=== PATIENT | male | born 1945 | race Caucasian/White ===

== ENCOUNTER 2018-08-18 13:10 | Day surgery (SDC) | payer MEDICARE, OTHER, SELFPAY ==
[2018-08-18 13:32] VITALS: BP 148/68; PULSE 71; RESP 18; TEMP 36.1; O2SAT 100; BMI 39.2
[2018-08-18] MEDS: Bupivacaine Mpf 0.5% 30 ML VIAL (14:38)
[2018-08-18] MEDS: Cefazolin 2 GM in 0.9% Normal Saline 100 ML IV (15:50)
[2018-08-18] MEDS: Mupirocin Ointment 22gm Tube 1 APPLIC (16:37)
--- NOTE | 2018-08-18 16:45 | DCINST_ITS ---
Discharge Diet: No Restrictions - keep dressing intact until seen in postop clinic in 2 weeks, call with concerns Discharge Activity: May Not Drive May shower in (days): 1 Ice area for (Minutes): 20 - Every hour while awake. Weight Bearing Status: Weight bearing as tolerated Keep extremity elevated above heart level: Operative Extremity Call your doctor if your incision/area has: Continuous Slow Oozing, Sudden Increased Bleeding, Increased Pain/ Swelling, Increased Redness, Foul Smelling Discharge Call your doctor if you observe: Fever of 101 or Higher, Coldness, Increased Pain, Numbness or Tingling, Change in Color, Calf discomfort Allergies/Adverse Reactions: Allergies No Known Allergies Allergy (Unverified 08/11/18 13:49) Medications to take at Discharge Metoprolol Succinate [Toprol Xl] 50 mg PO DAILY 08/11/18 Simvastatin 40 mg PO DAILY 08/11/18 Acetaminophen/Codeine #3 [Tylenol #3 Tablet] 1 - 2 tablet PO Q6H PRN PRN #30 tablet 08/18/18 The following prescriptions were given: Acetaminophen/Codeine #3 [Tylenol #3 Tablet] 1 - 2 tablet PO Q6H PRN PRN #30 tablet PRN Reason: Pain Primary Care Physician: Edward Bullard MD [Primary Care Provider] - Test Results: Test results from this visit will be discussed in further detail at your follow- up appointment, if applicable. Please Follow Up With: Judith Fish, - [phone]
--- NOTE | 2018-08-18 16:45 | PCM.OPRPT ---
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 It is over his right middle finger DIP on the dorsal aspect. Patient states he keeps filling up with fluid and is getting annoying to him so he would like it removed. It is affecting his ADLs. Wrist benefits alternatives surgery discussed with patient. Risks include but not limited to blood loss, blood clot, infection, neurovascular, failure procedure, loss of life and loss of limb. Patient is aware like proceed with right DIP dorsal excision of myxoid skin and DIP debridement. Next Operative note Patient seen and examined preoperative holding area. Right middle finger was marked. Patient brought to the operating room placed supine on the operating table. Sign, anesthesia, antibiotics were administered. Patient received a Vicky block. The right arm was prepped and draped usual sterile fashion with a tourniquet around his arm from the [place] block. We then marked out our incision the cyst was just ulnar and over the DIP joint and there is some skin excoriation. We did ginna out our incision to ellipse excised the skin as well. Timeout was performed. He is a 50 blade to cut through the skin dissected the skin off the top of the cyst we then able to look inside the cyst with some surrounding granulation tissue and sent to pathology for further evaluation. We then used a 15 blade to cut through the skin and dissected down tenotomy syllable of the subcuticular layer we then further debrided this back in order to visualize the DIP joint ulnar there is a little bit of a small osteophyte was gently debrided with accommodation of a rondure and a rasp. We then irrigated the entire area with copious amounts sterile saline saline we did have to deal with advancement of the tissue in order to close down the skin tissue after ellipticized and the skin on top of the cyst. We had good closure and good seal. Sterile dressings were applied tourniquet was inflated for total working time of 20 minutes. Patient tolerated procedure well went and was transferred to recovery room in stable condition. Postoperative note Keep right middle finger clean and dry next Follow-up in 2 weeks Discussed with family at [facility] disclaimer This note was generated with [employer] dictation software. It may contain incorrect words, spelling, and punctuation that were not noted in checking the note before signing.
--- NOTE | 2018-08-18 16:48 | OP.PCM_ITS ---
Report of Operation Date of Procedure: 08/18/18 Pre-Operative Diagnosis: right middle finger dip oa and myxoid cyst Post-Operative Diagnosis: same Surgery/Procedure Performed:: right middle finger dip cyst excision/skin excision, dip debridement Type of Anesthesia:: Vicky Velasco Anesthesiologist: Adria Dale Specimen's removed: cyst with granulation tissue Estimated Blood Loss (mL): minimal Fluids Replaced: 900cc lr Description of Procedure: Preoperative note Patient is a 73-year-old male who has had a cyst for quite some time is picked out it and keeps recurring. It is over his right middle finger DIP on the dorsal aspect. Patient states he keeps filling up with fluid and is getting annoying to him so he would like it removed. It is affecting his ADLs. Wrist benefits alternatives surgery discussed with patient. Risks include but not limited to blood loss, blood clot, infection, neurovascular, failure procedure, loss of life and loss of limb. Patient is aware like proceed with right DIP dorsal excision of myxoid skin and DIP debridement. Next Operative note Patient seen and examined preoperative holding area. Right middle finger was marked. Patient brought to the operating room placed supine on the operating table. Sign, anesthesia, antibiotics were administered. Patient received a B ier block. The right arm was prepped and draped usual sterile fashion with a tourniquet around his arm from the Vicky block. We then marked out our incision the cyst was just ulnar and over the DIP joint and there is some skin excoriation. We did ginna out our incision to ellipse excised the skin as well. Timeout was performed. He is a 50 blade to cut through the skin dissected the skin off the top of the cyst we then able to look inside the cyst with some surrounding granulation tissue and sent to pathology for further evaluation. We then used a 15 blade to cut through the skin and dissected down tenotomy syllable of the subcuticular layer we then further debrided this back in order to visualize the DIP joint ulnar there is a little bit of a small osteophyte was gently debrided with accommodation of a rondure and a rasp. We then irrigated the entire area with copious amounts sterile saline saline we did have to deal with advancement of the tissue in order to close down the skin tissue after ellipticized and the skin on top of the cyst. We had good closure and good seal. Sterile dressings were applied tourniquet was inflated for total working time of 20 minutes. Patient tolerated procedure well went and was transferred to recovery room in stable condition. Postoperative note Keep right middle finger clean and dry next Follow-up in 2 weeks Discussed with family at [facility] disclaimer This note was generated with [employer] software. It may contain incorrect words, spelling, and punctuation that were not noted in checking the note before signing.
[2018-08-18 16:51] VITALS: BP 148/68; BP 185/96; PULSE 70; RESP 20; TEMP 36.5; O2SAT 95
[2018-08-18 16:55] VITALS: BP 146/100; BP 148/68; PULSE 72; RESP 20; O2SAT 96
[2018-08-18 17:00] VITALS: BP 148/68; BP 157/97; PULSE 69; RESP 20; O2SAT 94
[2018-08-18 17:08] VITALS: BP 148/68; BP 165/99; PULSE 66; RESP 20; TEMP 36.2; O2SAT 95
[2018-08-18 17:28] VITALS: BP 148/68
--- NOTE | 2018-08-19 | CYST_PTH ---
PATIENT: AMISH NGUYEN [place] [facility] [place][id number] AGE/SX: 73/M ROOM: RE08/18/[address]: Dr. Judith Fish DO : 1945 BED: DIS: 08/18/2018 SPEC #: [id number] RECD: 08/19/18 10:52 STATUS: SHAYY ANA #: [id number] CELY: 08/19/18 00:[address]: Judith Fish DEPT: SURGICAL PATHOLOGY RECD BY: Arnold Marr ENTERED: 08/19/18 10:53 SP TYPE: Cyst OTHR DR: Dr. Edward Bullard MD Tissues: Finger, NOS Procedures: Surgery Specimen Level IV HEADER OPERATION: Excision dorsal myxoid cyst, DIP joint debridement right middle finger PRE-OP DIAGNOSIS: Cyst right middle finger TISSUE SUBMITTED: Cyst right middle finger MICROSCOPIC DIAGNOSIS Cyst of right middle finger, biopsy: Consistent with benign mucous cyst. AM:sangeeta 08/20/18 COMMENT Case has been reviewed in consultation with Dr. Dey who concurs with the above diagnosis. IDC:SJ MICROSCOPIC DESCRIPTION Slides are reviewed. GROSS DESCRIPTION Received in fixative is one container labeled with the patient's name and designated cyst middle finger. The specimen consists of an irregular fragment of light diaz soft tissue measuring 0.6 x 0.5 x 0.2 cm. The specimen is inked, bisected and totally submitted in one cassette. / AM:sangeeta 08/19/18 TC:5 CPT: 18103
--- OUTSIDE RECORDS SUMMARY | 2018-10-13 22:34 | XMS RPT_ITS ---
:1945 Author Organization OHIP Care Team Providers Name Role Phone Judith Fish Attending Unavailable Juan Miguel, Edward Referring Unavailable Judith Fish Attending Unavailable Judith Fish Attending Unavailable Roberto Carlos Deepak Referring Unavailable Judith Fish Attending Unavailable Roberto Carlos, Deepak Referring Unavailable Roberto Carlos, Deepak Primary Care Unavailable Judith Fish Attending Unavailable Bullard, Edward Referring Unavailable Judith Fish Attending Unavailable Judith Fish Referring Unavailable Bullard, Edward Primary Care Unavailable Bullard, Edward Attending Unavailable Bullard, Edward Primary Care Unavailable Bullard, Edward Attending Unavailable Bullard, Edward Primary Care Unavailable PROBLEMS PROBLEMS DATE TYPE CONDITION / CODE ATTENDING STATUS SOURCE 08/25/2018 Unknown M13.0 - Edward Bullard Active [place] [facility], Community unspecified / Hospital M13.0(ICD-10) Repository 08/25/2018 Unknown I10 - Essential Edward Bullard Active [place] (primary) [facility] hypertension / Hospital I10(ICD-10) Repository 08/25/2018 Unknown E78.00 - Pure Edward Bullard Active [place] hypercholesterolem [facility] ia, unspecified / Hospital E78.00(ICD-10) Repository 08/25/2018 Unknown Z12.5 - Encounter Edward Bullard Active [place] for screening for [facility] malignant neoplasm [facility] / Repository Z12.5(ICD-10) 09/06/2018 Unknown M25.841 - Other [place] Active [place] [facility] hand / Repository M25.841(ICD-10) PROCEDURES PROCEDURES No Procedure Records FoundRESULTS RESULTS ORTHOPEDIC VISIT Observed: 09/02/2018 Status: F Source: [place] REPORT 10:42 AM [facility] REPOSITORY [facility] Medicine [address] [place] [address] OFFICE VISIT Date of Service: 09/02/18 MR#: [id number] Acct: [id number] Name: AMISH NGUYEN Rep #: [id number] : 1945 Provider: Judith Fish DO Age/Sex: 73/M [place] [facility] [place]: Signed Intake Vital Signs09/02/18 Body Mass Index (BMI) 39.2 Intake Visit Reasons: right finger Is patient in pain?: No Allergies No Known Allergies Allergy (Unverified 08/11/18 13:49) Medications Metoprolol Succinate [Toprol Xl] 50 mg PO DAILY 08/11/18 [History Confirmed 08/18/18] Simvastatin 40 mg PO DAILY 08/11/18 [History Confirmed 08/11/18] Acetaminophen/Codeine #3 [Tylenol #3 Tablet] 1 - 2 tab PO Q6H PRN PRN #30 tab 08/18/18 [Rx] PFSH Social History Smoking Status: Never smoker HPI right finger: Details: AMISH NGUYEN is a 73 year old M here today for right middle finger cyst excision 08/18/18. He is not complaining of any pain, Denies numbness, tingling or other associated symptoms. He has been compliant with dressing and has not gotten the finger wet. Ortho Exam Right Wrist/Hand Skin/Wound: Yes healing, Yes suture/gisselle removed, Yes Swelling Contralateral Normal: Yes A1 kervin trigger: No Sensation: Radial: I, Ulnar: I, Median: I WRIST: decreased finger rom secondary to bandage and surgery Left Wrist/Hand Skin/Wound: Yes Swelling Right Ankle Skin/Wound: Yes suture/gisselle removed Assessment AND Plan 1. Orthopedic aftercare Z47.89 Plan Personally reviewed the surgical images if available, the surgery procedure and reviewed the post op care instructions. Monitor for signs of infection, redness, warmth, swelling in excess, drainage, opening of incision site/sites, and/or fever. Instructed to begin to use normally, he can get it wet but not soak yet. Follow up in a month with Hipolito or sooner if pain, swelling, numbness or associated symptoms, or concerns develop. All questions answered. Patient in agreement of plan. Coding Level of Care Code Global Post Op Diagnoses Orthopedic aftercare Z47.89 09/02/18 1042 <Electronically signed by Judith Fish DO> Date Jduith Fish DO Cosigner Signature: Date (if applicable) CC: MICROALB:CREAT Collected: 08/27/2018 Status: F Source: [facility] UR 8:07 AM [facility] REPOSITORY TYPE CODE TESTS RESULT OUT OF RANGE REFERENCE UNITS LAB L501.1200 NO RANGE EST. mg/dL Normal UR CREAT 90.50 LAB L502.0500 NO RANGE EST. mg/L Normal 5.4 MICROALBUMIN ,UR LAB L502.0600 <30 mg/g CRE mg/g CRE Normal 6.0 MALB:CREAT Performed By: #### L502.0250 #### [facility] [address] [place], [address] OPERATIVE REPORT Observed: 08/25/2018 Status: F Source: [place] 10:22 AM [facility] REPOSITORY [facility] Medical Records Department [address] [place] [address] Operative Report 08/18/18 1645 MR#: [id number] Acct: [id number] Name: AMISH NGUYEN Rep #: [id number] : 1945 73 From: Judith Fish DO PCP: Edward Bullard MD [place] [facility] [place] [facility] [place] of Operation Date of Procedure: 08/18/18 Pre-Operative Diagnosis: right middle finger dip oa and myxoid cyst Post-Operative Diagnosis: same Surgery/Procedure Performed:: right middle finger dip cyst excision/skin excision, dip debridement Type of Anesthesia:: Block,[facility] Anesthesiologist: Adria Dale Specimen's removed: cyst with granulation tissue Estimated Blood Loss (mL): minimal Fluids Replaced: 900cc lr Description of Procedure: Preoperative note Patient is a 73-year-old male who has had a cyst for quite some time is picked out it and keeps recurring. It is over his right middle finger DIP on the dorsal aspect. Patient states he keeps filling up with fluid and is getting annoying to him so he would like it removed. It is affecting his ADLs. Wrist benefits alternatives surgery discussed with patient. Risks include but not limited to blood loss, blood clot, infection, neurovascular, failure procedure, loss of life and loss of limb. Patient is aware like proceed with right DIP dorsal excision of myxoid skin and DIP debridement. Next Operative note Patient seen and examined preoperative holding area. Right middle finger was marked. Patient brought to the operating room placed supine on the operating table. Sign, anesthesia, antibiotics were administered. Patient received a Vicky block. The right arm was prepped and draped usual sterile fashion with a tourniquet around his arm from the Vicky block. We then marked out our incision the cyst was just ulnar and over the DIP joint and there is some skin excoriation. We did ginna out our incision to ellipse excised the skin as well. Timeout was performed. He is a 50 blade to cut through the skin dissected the skin off the top of the cyst we then able to look inside the cyst with some surrounding granulation tissue and sent to pathology for further evaluation. We then used a 15 blade to cut through the skin and dissected down tenotomy syllable of the subcuticular layer we then further debrided this back in order to visualize the DIP joint ulnar there is a little bit of a small osteophyte was gently debrided with accommodation of a rondure and a rasp. We then irrigated the entire area with copious amounts sterile saline saline we did have to deal with advancement of the tissue in order to close down the skin tissue after ellipticized and the skin on top of the cyst. We had good closure and good seal. Sterile dressings were applied tourniquet was inflated for total working time of 20 minutes. Patient tolerated procedure well went and was transferred to recovery room in stable condition. Postoperative note Keep right middle finger clean and dry next Follow-up in 2 weeks Discussed with family at [employer] disclaimer This note was generated with [employer] dictation software. It may contain incorrect words, spelling, and punctuation that were not noted in checking the note before signing. 08/25/18 1022 <Electronically signed by Judith Fish DO> Date Judith Fish DO CC: Judith Fish DO; Edward Bullard MD Signed CBC W/DIFF, AUTOMATED Collected: 08/25/2018 Status: F Source: [place] 9:48 AM [facility] REPOSITORY TYPE CODE TESTS RESULT OUT OF RANGE REFERENCE UNITS LAB L100.1000 4.4-11.0 K/mm3 Normal WBC 5.3 LAB L100.1200 4.6-6.2 M/mm3 Normal RBC 4.78 LAB L100.1300 13.0-16.5 g/dl Normal HGB 15.6 LAB L100.1400 40-54 % Normal HCT 45.6 LAB L100.1500 80-94 fL High MCV 95.4 LAB L100.1600 27.0-32.0 pg High MCH 32.6 LAB L100.1700 32-36 g/gl Normal MCHC 34.2 LAB L100.1810 11.6-14.6 % Normal RDW CV 13.5 LAB L100.1820 35.1-43.9 fl High RDW SD 47.0 LAB L100.1900 150-450 K/mm3 Low PLT 109 LAB L100.2000 6.2-12.0 fl Normal MPV 9.7 LAB L100.2100 47-70 % Low NEUT% 40.0 LAB L100.2200 19-41 % High LY% 46.7 LAB L100.2300 0-10 % Normal MONO% 9.7 LAB L100.2400 0-5 % Normal EO% 3.4 LAB L100.2500 0-1 % Normal BASO% 0.2 LAB L100.2550 0.0-0.9 % Normal IM GRAN % 0.000 Result Comment: IG% - Immature Granulocytes (promyelocytes, myelocytes and metamyelocytes) > 1% indicates that a LEFT SHIFT is Present. LAB L100.2620 2.0-7.7 X10 3/uL Normal Absolute Neut 2.1 LAB L100.2720 0.83-4.51 X10 3/ul Normal Absolute Lymph 2.45 Performed By: #### L100.0100 #### [facility] [address] [place], [place], [address] VITAMIN D,25 HYDROXY Collected: 08/25/2018 Status: F Source: [place] 9:48 AM [facility] REPOSITORY TYPE CODE TESTS RESULT OUT OF RANGE REFERENCE UNITS LAB L506.1000 29.95-100.01 ng/mL Normal Vitamin D 34.9 25-OH Result Comment: Vitamin D 25(OH) Status Range Deficiency <20 ng/mL (50nmol/L) Insuffciency 20 - 30 ng/mL (50 - 75 nmol/L) Sufficiency 30 - 100 ng/mL (75 - 250 nmol/L) Toxicity >100 ng/mL (>250 nmol/L) Performed By: #### L506.1000 #### [facility] [address] [facility] [place], [address] COMPREHENSIVE METABOLIC Collected: 08/25/2018 Status: F Source: [facility] 9:48 AM [facility] REPOSITORY TYPE CODE TESTS RESULT OUT OF RANGE REFERENCE UNITS LAB L501.0100 74-106 mg/dL Normal GLU 90 Result Comment: Please note revised GLUCOSE reference range effective 2017. LAB L501.1000 7-18 mg/dL Normal BUN 12 LAB L501.1100 0.70-1.30 mg/dL Normal CREAT,SERUM 0.83 Result Comment: The validity of the calculated GFR AND GFRAA in patients over 70 years has not been determined. Clinical correlation is essential. LAB L501.1110 >60 mL/min Normal EST GFR 97 Result Comment: Non- GFR Calc LAB L501.1115 >60 mL/min Normal EST GFR - AA 117 Result Comment: GFR Calc LAB L501.1300 10-20 RATIO Normal BUN/CRE 14.5 LAB L501.1500 6.4-8.2 g/dL T Normal PROT 6.8 LAB L501.1800 3.2-5.0 g/dL Normal ALB 3.8 LAB L501.1950 2.2-4.2 g/dL Normal GLOB 3.0 LAB L501.2000 0.9-2.4 RATIO Normal A/G 1.3 LAB L501.2200 8.5-10.1 mg/dL CA Normal 8.6 LAB L501.4100 15-37 U/L Normal AST 36 LAB L501.4305 45-117 U/L Normal ALK P 84 LAB L501.4405 16-61 U/L Normal ALT 44 LAB L501.4600 0.20-1.00 mg/dL T Normal BILI 1.00 LAB L501.5300 136-145 mmol/L NA Normal 142 LAB L501.5600 3.5-5.1 mmol/L K Normal 4.5 LAB L501.5900 98-107 mmol/L CL Normal 107 LAB L501.6100 21.0-32.0 mmol/L Normal CO2 27.0 LAB L501.6200 5-15 Normal GAP 8 Performed By: #### L500.4050, L500.4100, L501.9520, L501.9910 #### [facility] [address] [place], [place], [address] LIPID PROFILE Collected: 08/25/2018 Status: F Source: [place] 9:48 AM [facility] REPOSITORY TYPE CODE TESTS RESULT OUT OF RANGE REFERENCE UNITS LAB L501.4900 200 mg/dL Normal CHOL 138 Result Comment: <200 mg/dL Desirable 200-240 mg/dL Borderline >240 mg/dL High Risk LAB L501.5000 mg/dL Normal TRIG 107 Result Comment: The drugs N-Acetylcysteine and Metamizole may falsely depress this assay. Serum Triglycerides Reference Interval Normal <150 mg/dL Borderline high 150 - 199 mg/dL High 200 - 499 mg/dL Very High > or = 500 mg/dL LAB L501.6400 mg/dL Normal HDL 45 Result Comment: The drugs N-Acetylcysteine and Metamizole may falsely depress this assay. Reference Range HDL <40 mg/dL Low HDL Cholesterol HDL >or= 60 mg/dL High HDL Cholesterol LAB L501.6500 0-130 mg/dL Normal LDL 72 LAB L501.6600 5-40 mg/dL Normal VLDL 21 Performed By: #### L500.4050, L500.4100, L501.9520, L501.9910 #### [facility] [address] [facility] [place], [place], [address] THYROID STIM HORMONE Collected: 08/25/2018 Status: F Source: [place] (TSH) 9:48 AM [facility] REPOSITORY TYPE CODE TESTS RESULT OUT OF RANGE REFERENCE UNITS LAB L501.9520 0.358-3.74 uIU/mL Normal TSH 2.83 Performed By: #### L500.4050, L500.4100, L501.9520, L501.9910 #### [facility] [address] [facility] [place], [address] PSA,TOTAL - ANNUAL Collected: 08/25/2018 Status: F Source: [place] SCREEN 9:48 AM [facility] REPOSITORY TYPE CODE TESTS RESULT OUT OF RANGE REFERENCE UNITS LAB L501.9910 0.00-4.00 ng/mL Normal PSA,TOT 0.74 SCREEN Result Comment: This test was performed using the TPSA assay method for the [employer] chemistry system. Values obtained with different assay methods cannot be used interchangably. When changing PSA assays in the course of monitoring a patient, additional sequential testing should be carried out to confirm baseline values. Performed By: #### L500.4050, L500.4100, L501.9520, L501.9910 #### [facility] [address] [place], [place], [address] CYST Observed: 08/19/2018 Status: F Source: [place] 12:00 AM [facility] REPOSITORY Patient: AMISH NGUYEN : 1945 (73/M) Acct Num: [id number] Phys: RubiJudith brooks DO Unit Num: [id number] [place] [facility] Specimen: [id number] Received: 08/19/18 105 Spec Type: Cyst TISSUES 1 TISSUES: Finger, NOS COMMENT Case has been reviewed in consultation with Dr. Dey who concurs with the above diagnosis. IDC:HERLINDA GROSS DESCRIPTION Received in fixative is one container labeled with the patient's name and designated cyst middle finger. The specimen consists of an irregular fragment of light diaz soft tissue measuring 0.6 x 0.5 x 0.2 cm. The specimen is inked, bisected and totally submitted in one cassette. / AM:sangeeta 08/19/18 TC:5 CPT: 69703 HEADER OPERATION: Excision dorsal myxoid cyst, DIP joint debridement right middle finger PRE-OP DIAGNOSIS: Cyst right middle finger TISSUE SUBMITTED: Cyst right middle finger MICROSCOPIC DESCRIPTION Slides are reviewed. MICROSCOPIC DIAGNOSIS Cyst of right middle finger, biopsy: Consistent with benign mucous cyst. AM:sangeeta 08/20/[address] [facility] 08/20/18 <signature on file> Performed By: #### PCYST #### [facility] [place], [address] DISCHARGE INSTRUCTION Observed: 08/18/2018 Status: F Source: [place] 4:45 PM [facility] REPOSITORY [facility] Medical Records Department [facility] [place] [address] Instructions for Home/Discharge Instructions 08/18/18 1644 MR#: [id number] Acct: [id number] Name: AMISH NGUYEN Rep #: [id number] : 1945 73 From: Judith Fish DO PCP: Edward Bullard MD [place] [facility] Discharge Diet: No Restrictions - keep dressing intact until seen in postop clinic in 2 weeks, call with concerns Discharge Activity: May Not Drive May shower in (days): 1 Ice area for (Minutes): 20 - Every hour while awake. Weight Bearing Status: Weight bearing as tolerated Keep extremity elevated above heart level: Operative Extremity Call your doctor if your incision/area has: Continuous Slow Oozing, Sudden Increased Bleeding, Increased Pain/ Swelling, Increased Redness, Foul Smelling Discharge Call your doctor if you observe: Fever of 101 or Higher, Coldness, Increased Pain, Numbness or Tingling, Change in Color, Calf discomfort Allergies/Adverse Reactions: Allergies No Known Allergies Allergy (Unverified 08/11/18 13:49) Medications to take at Discharge Metoprolol Succinate [Toprol Xl] 50 mg PO DAILY 08/11/18 Simvastatin 40 mg PO DAILY 08/11/18 Acetaminophen/Codeine #3 [Tylenol #3 Tablet] 1 - 2 tablet PO Q6H PRN PRN #30 tablet 08/18/18 The following prescriptions were given: Acetaminophen/Codeine #3 [Tylenol #3 Tablet] 1 - 2 tablet PO Q6H PRN PRN #30 tablet PRN Reason: Pain Primary Care Physician: Edward Bullard MD [Primary Care Provider] - Test Results: Test results from this visit will be discussed in further detail at your follow-up appointment, if applicable. Please Follow Up With: Judith Fish DO - [phone] 08/18/18 1645 <Electronically signed by Judith Fish DO> Date Judith Fish DO CC: Edward Bullard MD ORTHOPEDIC VISIT Observed: 07/22/2018 Status: F Source: [place] REPORT 10:23 AM [facility] Orth[facility]ics [facility] Medicine [address] [place] [address] OFFICE VISIT Date of Service: 07/22/18 MR#: [id number] Acct: [id number] Name: AMISH NGUYEN Rep #: [id number] : 1945 Provider: Judith Fish DO Age/Sex: 73/M [place] [facility] [place]: Signed Intake Intake Visit Reasons: right finger Is patient in pain?: Yes Allergies No Known Allergies Allergy (Unverified 07/22/18 09:34) HPI right finger: Details: AMISH NGUYEN is a 73 year old M here today for right middle finger. Patient notes that he has no pain. Patient has a cyst over his finger. He states that he had a flare up a few weeks ago which caused the cyst to get larger and redness. Denies numbness, tingling or other associated symptoms. He would like to discuss possible removal of cyst. ROS Const Reports system reviewed and no additional complaints, except as docu Eyes Reports system reviewed and no additional complaints, except as docu ENT Reports system reviewed and no additional complaints, except as docu Card Reports system reviewed and no additional complaints, except as docu Resp Reports system reviewed and no additional complaints, except as docu GI Reports system reviewed and no additional complaints, except as docu Reports system reviewed and no additional complaints, except as docu Musc Reports joint pain, Reports joint swelling Skin/Breast Reports system reviewed and no additional complaints, except as docu Neuro Yes system reviewed and no additional complaints, except as docu Psych Reports system reviewed and no additional complaints, except as docu Endo Reports system reviewed and no additional complaints, except as docu Ortho Exam Right Wrist/Hand Skin/Wound: Yes CDI, Yes Swelling Contralateral Normal: Yes A1 kervin trigger: No WRIST: visible cyst Left Wrist/Hand Skin/Wound: Yes Swelling Assessment AND Plan 1. Cyst of finger Plan Reviewed the surgical procedure to remove the cyst, post op restrictions and explained that the cyst can return. Explained that the cyst comes from the joint and goal is to remove the stalk. Reviewed the pre-operative plans with the patient. Risks and benefits of the procedure were fully explained, including but not limited to infection, neurovascular injury, continued pain, arthritis, stiffness, need for further surgery, re-injury, DVT, PE, general risks of anesthesia, and loss of limb or life. The patient understands all the risks and does wish to proceed with written consent. Follow up post op or sooner if pain, swelling, numbness or associated symptoms, or concerns develop. All questions answered. Patient in agreement of plan. Coding Level of Care Code Off vis,est,level 4 Diagnoses Cyst of finger 07/22/18 1023 <Electronically signed by Judith Fish DO> Date Judith Fish DO Cosigner Signature: Date (if applicable) CC: ORTHOPEDIC VISIT Observed: 04/29/2018 Status: F Source: [place] REPORT 1:00 PM [facility] REPOSITORY [facility] Orthopaedics AND Sports Medicine [address] [place] [address] OFFICE VISIT Date of Service: 04/29/18 MR#: [id number] Acct: [id number] Name: AMISH NGUYEN Rep #: [id number] : 1945 Provider: Judith Fish DO Age/Sex: 72/M [place] [facility] [place]: Signed Intake Intake Visit Reasons: EVALUATE RT MIDDLE FINGER CYST Is patient in pain?: Yes Pain scale (1-10): 3 HPI EVALUATE RT MIDDLE FINGER CYST: Details: AMISH NGUYEN is a 72 year old M here today for cyst on the right dip of middle finger. He states that three weeks ago the cyst was so large he opened it at home with a needle and squeezed the gel out himself. Today he states that it is tender when it hits something. it is healing well from his home procedure but he states he is ready for something to be done to remove it. Denies numbness, tingling or other associated symptoms. Ortho Exam Right Wrist/Hand Skin/Wound: Yes healing, Yes Swelling Contralateral Normal: Yes A1 kervin trigger: No Right Wrist: Yes ROM-Extension 0-60, ROM-Supination 0-90, ROM-Flexion 0-80 and ROM-Pronation 0-80 WRIST: cyst over middle finger DIP Left Wrist/Hand Skin/Wound: Yes Swelling Assessment AND Plan 1. 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 Explained that he should have pain relief from the cyst and that he should have better mobility of the joint. He could still have some sensitivity to the touch. Today his skin is still healing, allow another three weeks to heal and if it returns we will consent for removal. Follow up prn or sooner if pain, swelling, numbness or associated symptoms, or concerns develop. All questions answered. Patient in agreement of plan. 2. 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 Cyst of finger 04/29/18 1300 <Electronically signed by Judith Fish DO> Date Judith Fish DO Cosigner Signature: Date (if applicable) CC: ALLERGIES ALLERGIES DATE TYPE / CODE NAME / CODE REACTION SEVERITY SOURCE 08/11/2018 Drug No Known Unknown [place] [facility] Allergy/4160 Allergies/F00 [facility] 13077(SNOMED [id number](RXNOR Repository CT) M) ENCOUNTERS ENCOUNTERS ADMIT/DISCHARGE ACCOUNT ADMITTING ENCOUNTER LOCATION SOURCE NUMBER CLASS 09/02/2018/ [id number] Ambulatory BMSBuilding:B [place] 8 1 [facility] Repository 08/27/2018 [id number] Ambulatory [place] 7 [facility] ing:MFPLAB Repository 08/25/2018 [id number] Ambulatory [place] 5 [facility] ing:MFPLAB Repository 08/18/2018/ [id number] Ambulatory BMSBuilding:B [place] 8 7 MS.[facility] Repository 08/18/2018/ [id number] Ambulatory [place] 8 4 [facility] ing:SDCRoom: Repository AC15 07/22/2018/ [id number] Ambulatory BMSBuilding:B [place] 8 8 [facility] Repository 04/29/2018/ [id number] Ambulatory BMSBuilding:B [place] 8 7 [facility] Repository 12/29/2017 [id number] Ambulatory BMSBuilding:B [place] 3 [facility] Repository PAYERS PAYERS ENCOUNTER GUARANTOR PAYER SUBSCRIBER SOURCE 09/02/2018 DIONY Primary DOINY [place] [id number] Insurance:MEDICARE BATTERSHELLDOB: [facility] [id number] Number: Repository [address]Aog: 330 [id number] [phone] () Date:2018-07-23 09/02/2018 Secondary DIONY [place] Insurance:[employer] BATTERSHELLDOB: Community [facility] [id number] Number: Repository [id number] Date:[id number], [place] [address]KA: 09/02/2018 Tertiary NOT GIVENUNK [place] Insurance:SELF PAY [facility] Number: Effective Repository Date:2018-09-02 08/27/2018 DIONY Primary DIONY [place] [id number] Insurance:MEDICARE BATTERSHELLDOB: [facility] [id number] Number: Repository [id number]: 330 [id number] [phone] () Date:2018-08-27 08/27/2018 Secondary DIONY [place] Insurance:HEALTHSCOPE BATTERSHELLDOB: Community BENEFITS, INCCryoLifeicy [id number] Hospital Number: Repository [id number] Date:2345-32-43[address], [place] [address]SN: 08/27/2018 Tertiary NOT GIVENUNK [place] Insurance:SELF [facility]Y [facility] Number: Effective Repository Date:2018-08-27 08/25/2018 DIONY Primary DIONY [place] [id number] Insurance:MEDICARE BATTERSHELLDOB: Community ISHAN JONES PART A olic [id number] Number: Repository [id number]: 330 [id number] [phone] () Date:2018-08-25 08/25/2018 Secondary DIONY [place] Insurance:HEALTHSCOPE BATTERSHELLDOB: Community BENEFITS, INCPolicy [id number] Hospital Number: Repository [id number] Date:0760-24-86[address] [address], [place] [address]PT: 08/25/2018 Tertiary NOT GIVENUNK [place] Insurance:SELF PAY [facility] Number: Effective Repository Date:2018-08-25 08/18/2018 DIONY Primary DIONY [place] [id number] Insurance:MEDICARE BATTERSHELLDOB: Community ISHAN JONES PART A [facility] [id number] Number: Repository [id number]: 330 [id number] [phone] () Date:2018-07-23 08/18/2018 Secondary AMISH Contreras [place] Insurance:HEALTHSCOPE BATTERSHELLDOB: Community BENEFITS, INCPolicy [id number] Hospital Number: Repository [id number] Date:6149-53-57SY [address] [address]EL[place]DP, [place] [address]UK: 08/18/2018 Tertiary NOT GIVENUNK [place] Insurance:SELF PAY Community [facility] Number: Effective Repository Date:2018-08-18 08/18/2018 DIONY Primary DIONY [place] [id number] Insurance:MEDICARE BATTERSHELLDOB: Community ISHAN JONES PART A [facility] [id number] Number: Repository [id number]: 330 [id number] [phone] () Date:2018-07-23 08/18/2018 Secondary DINOY [place] Insurance:HEALTHSCOPE BATTERSHELLDOB: Community BENEFITS, INCPolicy [id number] Hospital Number: Repository [id number] Date:5161-64-53[address] [address], [place] [address]RM: 08/18/2018 Tertiary NOT GIVENUNK [place] Insurance:SELF PAY Community [facility] Number: Effective Repository Date:2018-07-23 07/22/2018 DIONY Primary DIONY [place] [id number] Insurance:MEDICARE BATTERSHELLDOB: Community ISHAN JONES PART A [facility] [id number] Number: Repository [id number]: 330 [id number] [phone] () Date:2018-07-01 07/22/2018 Secondary DIONY [place] Insurance:HEALTHSCOPE BATTERSHELLDOB: Community BENEFITS, INCPolicy [id number] Hospital Number: Repository [id number] Date:6946-23-86YW [address] [address]ZWJ[place], [place] [address]GY: 07/22/2018 Tertiary NOT GIVENUNK [place] Insurance:SELF PAY Community [facility] Number: Effective Repository Date:2018-07-22 04/29/2018 DIONY Primary DIONY [place] [id number] Insurance:MEDICARE BATTERSHELLDOB: Community ISHAN JONES PART A [facility] [id number] Number: Repository [id number]: 330 [id number] [phone] () Date:2018-04-08 04/29/2018 Secondary DIONY [place] Insurance:HEALTHSCOPE BATTERSHELLDOB: Community BENEFITS, INCPolicy [id number] Hospital Number: Repository [id number] Date:2238-87-27JE [address] [address], [place] [address]DG: 04/29/2018 Tertiary NOT GIVENUNK [place] Insurance:SELF PAY Community [facility] Number: Effective Repository Date:2018-04-29 12/29/2017 Diony Primary Diony [place] [id number] Insurance:HEALTHSCOPE BattershellDOB: Community [place] BENEFITS, [place] [id number] Number: Repository [id number]: [phone] [id number] [phone] () Date:4418-43-61IO [address] [address]FI[place], [place] [address]RY: 12/29/2017 Secondary DIONY [place] Insurance:MEDICARE BATTERSHELLDOB: Community PART A [facility] [id number] Hospital Number: Repository [id number] Date:2017-12-23 12/29/2017 Tertiary NOT GIVENUNK [place] Insurance:SELF PAY [facility]: Effective Repository Date:2017-12-23
== END 2018-08-18 18:20 | disposition home or self-care (01) ==
LOC: SDC 13:12 → AC 13:14
PROVIDERS: Family Provider Family Medicine; PCP Family Medicine; Referring Provider Orthopaedic Surgery; Visit Provider Orthopaedic Surgery
PROC: (CPT 26160; principal; 2018-08-18 14:35)
DX: M25.841 Other specified joint disorders, right hand (principal); I10 Essential (primary) hypertension; E78.00 Pure hypercholesterolemia, unspecified
CPT/HCPCS: 26160; 88304; 88305; J7120

== ENCOUNTER → 2018-08-25 09:47 | Outpatient (CLI) | payer MEDICARE, OTHER, SELFPAY ==
[2018-08-18 13:32] VITALS: BMI 39.2
[2018-08-25 12:12] LABS: Absolute Lymphocyte Count 2.45 X10^3/ul (0.83-4.51); Absolute Neutrophil Count 2.1 X10^3/uL (2.0-7.7); Basophil# 0.01 X10^3/uL; Basophil% 0.2 % (0-1); Eosinophil# 0.18 X10^3/uL; Eosinophils% 3.4 % (0-5); Hematocrit 45.6 % (40-54); Hemoglobin 15.6 g/dl (13.0-16.5); Lymphocyte # 2.45 X10^3/ul (4.0); Lymphocyte % 46.7 % (19-41); Mean Corp Hgb Conc 34.2 g/gl (32-36); Mean Corpuscular Hgb 32.6 pg (27.0-32.0); Mean Corpuscular Volume 95.4 fL (80-94); Mean Platelet Vol. 9.7 fl (6.2-12.0); Monocyte# 0.51 X10^3/uL; Monocyte% 9.7 % (0-10); Platelet Count 109 K/mm3 (150-450); RBC Distribution Width CV 13.5 % (11.6-14.6); Red Blood Count 4.78 M/mm3 (4.6-6.2); White Blood Count 5.3 K/mm3 (4.4-11.0)
[2018-08-25 12:15] LABS: POSITIVE COUNT NO; POSITIVE DIFFERENTIAL NO; POSITIVE MORPHOLOGY NO
[2018-08-25 12:29] LABS: Vitamin D,25 Hydroxy 34.9 ng/mL (29.95-100.01)
[2018-08-25 12:31] LABS: ALB/GLOB Ratio 1.3 RATIO (0.9-2.4); AST(SGOT) 36 U/L (15-37); Alanine Aminotransfer ALT/SGPT 44 U/L (16-61); Albumin, Serum 3.8 g/dL (3.2-5.0); Alkaline Phosphatase 84 U/L (45-117); Anion Gap 8 (5-15); BUN 12 mg/dL (7-18); BUN/Creat Ratio 14.5 RATIO (10-20); Calcium,Total 8.6 mg/dL (8.5-10.1); Chloride 107 mmol/L (98-107); Cholesterol 138 mg/dL (200); Creatinine, Serum 0.83 mg/dL (0.70-1.30); EST Glomerular Filtration Rate 97 mL/min (>60); Est Glom Filt Rate - Afr Amer 117 mL/min (>60); Glucose 90 mg/dL (74-106); High Density Lipoprotein 45 mg/dL; PSA,Total - Annual Screen 0.74 ng/mL (0.00-4.00); Potassium 4.5 mmol/L (3.5-5.1); Protein, Total 6.8 g/dL (6.4-8.2); Sodium Level 142 mmol/L (136-145); Thyroid Stim Hormone (TSH) 2.83 uIU/mL (0.358-3.74); Triglycerides 107 mg/dL; Very Low Density Lipoprotein 21 mg/dL (5-40)
== END ==
PROVIDERS: Family Provider Family Medicine; PCP Family Medicine; Visit Provider Family Medicine
DX: M13.0 Polyarthritis, unspecified (principal); I10 Essential (primary) hypertension; E78.00 Pure hypercholesterolemia, unspecified; Z12.5 Encounter for screening for malignant neoplasm of prostate
CPT/HCPCS: 36415; 80053; 80061; 82306; 84153; 84443; 85025; G0103

== ENCOUNTER → 2018-08-27 08:04 | Outpatient (CLI) | payer MEDICARE, OTHER, SELFPAY ==
[2018-08-18 13:32] VITALS: BMI 39.2
[2018-08-27 10:53] LABS: Microalbumin,Random Urine 5.4 mg/L (NO RANGE EST.)
== END ==
PROVIDERS: Family Provider Family Medicine; PCP Family Medicine; Visit Provider Family Medicine
DX: I10 Essential (primary) hypertension (principal); M13.0 Polyarthritis, unspecified; E78.00 Pure hypercholesterolemia, unspecified
CPT/HCPCS: 82043; 82570

== ENCOUNTER → 2020-08-10 09:03 | Outpatient (CLI) | payer MEDICARE, OTHER, SELFPAY ==
[2018-10-04 09:35] VITALS: BMI 39.2
[2020-08-10 10:39] LABS: Microalbumin:Creatinine Ratio 5.3 mg/g CRE (<30 mg/g CRE)
[2020-08-10 10:46] LABS: ALB/GLOB Ratio 1.3 RATIO (0.9-2.4); AST(SGOT) 51 U/L (15-37); Alanine Aminotransfer ALT/SGPT 64 U/L (16-61); Albumin, Serum 3.7 g/dL (3.2-5.0); Alkaline Phosphatase 88 U/L (45-117); Anion Gap 4 (5-15); BUN 14 mg/dL (7-18); BUN/Creat Ratio 16.3 RATIO (10-20); Calcium,Total 8.7 mg/dL (8.5-10.1); Chloride 109 mmol/L (98-107); Cholesterol 126 mg/dL (200); Creatinine, Serum 0.86 mg/dL (0.70-1.30); EST Glomerular Filtration Rate 93 mL/min (>60); Est Glom Filt Rate - Afr Amer 112 mL/min (>60); Globulin 2.9 g/dL (2.2-4.2); Glucose 114 mg/dL (74-106); High Density Lipoprotein 44 mg/dL; Potassium 4.6 mmol/L (3.5-5.1); Protein, Total 6.6 g/dL (6.4-8.2); Sodium Level 141 mmol/L (136-145)
== END ==
PROVIDERS: PCP Family Medicine; Visit Provider Family Medicine
DX: E78.00 Pure hypercholesterolemia, unspecified (principal); I10 Essential (primary) hypertension
CPT/HCPCS: 36415; 80053; 82043; 82465; 82570; 83718

== ENCOUNTER → 2021-07-29 10:37 | Outpatient (CLI) | payer MEDICARE, SELFPAY ==
[2021-07-29 12:28] LABS: AST(SGOT) 52 U/L (15-37); Alanine Aminotransfer ALT/SGPT 67 U/L (16-61); Anion Gap 3 (5-15); BUN 11 mg/dL (7-18); BUN/Creat Ratio 12.4 RATIO (10-20); Calcium,Total 8.7 mg/dL (8.5-10.1); Chloride 109 mmol/L (98-107); Cholesterol 141 mg/dL (200); Creatinine, Serum 0.89 mg/dL (0.70-1.30); EST Glomerular Filtration Rate 89 mL/min (>60); Est Glom Filt Rate - Afr Amer 108 mL/min (>60); Glucose 122 mg/dL (74-106); High Density Lipoprotein 44 mg/dL; Potassium 4.4 mmol/L (3.5-5.1); Sodium Level 139 mmol/L (136-145); Triglycerides 147 mg/dL; Very Low Density Lipoprotein 29 mg/dL (5-40)
[2021-07-29 12:54] LABS: Microalbumin,Random Urine 27.9 mg/L (NO RANGE EST.); Microalbumin:Creatinine Ratio 12.5 mg/g CRE (<30 mg/g CRE)
== END ==
PROVIDERS: PCP Family Medicine; Visit Provider Family Medicine
DX: I10 Essential (primary) hypertension (principal); E78.00 Pure hypercholesterolemia, unspecified
CPT/HCPCS: 36415; 80048; 80061; 82043; 82570; 84450; 84460

== ENCOUNTER 2023-01-26 11:24 | Outpatient (CLI) | payer MEDICARE, SELFPAY ==
[2023-01-26 15:37] LABS: AST(SGOT) 40 U/L (15-37); Alanine Aminotransfer ALT/SGPT 48 U/L (16-61); Anion Gap 5 (5-15); BUN 11 mg/dL (7-18); BUN/Creat Ratio 17.2 RATIO (10-20); Calcium,Total 9.1 mg/dL (8.5-10.1); Chloride 107 mmol/L (98-107); Cholesterol 143 mg/dL (200); Creatinine, Serum 0.64 mg/dL (0.70-1.30); EST Glomerular Filtration Rate 129 mL/min (>60); Est Glom Filt Rate - Afr Amer 156 mL/min (>60); Glucose 108 mg/dL (74-106); High Density Lipoprotein 47 mg/dL; Potassium 4.4 mmol/L (3.5-5.1); Sodium Level 140 mmol/L (136-145); Triglycerides 125 mg/dL; Very Low Density Lipoprotein 25 mg/dL (5-40)
[2023-01-26 15:57] LABS: Microalbumin,Random Urine 6.6 mg/L (NO RANGE EST.); Microalbumin:Creatinine Ratio 6.1 mg/g CRE (<30 mg/g CRE)
[2023-01-26 17:07] LABS: Hemoglobin A1c 4.7 % (3.8-5.6)
== END 2023-01-26 23:59 | disposition home or self-care (01) ==
PROVIDERS: PCP Family Medicine; Visit Provider Family Medicine
DX: E78.00 Pure hypercholesterolemia, unspecified (principal); E66.01 Morbid (severe) obesity due to excess calories; I10 Essential (primary) hypertension; Z79.899 Other long term (current) drug therapy
CPT/HCPCS: 36415; 80048; 80061; 82043; 82570; 83036; 84450; 84460

== ENCOUNTER → 2024-01-26 | Outpatient (CLI) | payer MEDICARE, SELFPAY ==
[2024-01-26 13:03] LABS: Protein, Urine (Random) 10.2 mg/dL (<11.9); Protein:Creat Ratio 97 mg/g CRE (0-200)
[2024-01-26 13:15] LABS: AST(SGOT) 49 U/L (15-37); Alanine Aminotransfer ALT/SGPT 51 U/L (16-61); Anion Gap 3 (5-15); BUN 11 mg/dL (7-18); Calcium,Total 9.1 mg/dL (8.5-10.1); Chloride 110 mmol/L (98-107); Cholesterol 117 mg/dL (200); Creatinine, Serum 0.79 mg/dL (0.70-1.30); EST Glomerular Filtration Rate 101 mL/min (>60); Est Glom Filt Rate - Afr Amer 123 mL/min (>60); Glucose 123 mg/dL (74-106); High Density Lipoprotein 52 mg/dL; Potassium 4.3 mmol/L (3.5-5.1); Sodium Level 139 mmol/L (136-145); Triglycerides 94 mg/dL; Very Low Density Lipoprotein 19 mg/dL (5-40)
== END | disposition home or self-care (01) ==
LOC: MFPLAB 11:07
PROVIDERS: PCP Family Medicine; Visit Provider Family Medicine
DX: E78.00 Pure hypercholesterolemia, unspecified (principal); I10 Essential (primary) hypertension
CPT/HCPCS: 36415; 80048; 80061; 82570; 84156; 84450; 84460

== ENCOUNTER → 2025-06-29 | Outpatient (CLI) | payer MEDICARE, SELFPAY ==
--- NOTE | 2025-06-29 13:04 | RAD_ITS ---
PROCEDURE: KNEE 4 OR MORE VIEWS 06/29/2025 REASON FOR EXAM: KNEE PAIN TECHNIQUE: Procedure Code: RADKN Modality: DX Procedure: KNEE 4 OR MORE VIEWS Laterality: Right COMPARISON: None FINDINGS: There is no evidence of fracture or dislocation. There is moderate arthritis of the patellofemoral joint. There is severe arthritis of the medial joint space compartment of the knee. There is severe arthritis of the lateral joint space compartment of the knee. There is chondrocalcinosis of the medial and lateral menisci. There is no knee joint effusion. The periarticular soft tissues are normal. RAD/Knee 4 or More Views IMPRESSION: 1. 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 2. Chondrocalcinosis consistent with CPPD. Reading Location: [id number]
== END | disposition home or self-care (01) ==
LOC: MTRAD 13:00
PROVIDERS: PCP Family Medicine; Referring Provider Family Medicine; Visit Provider Family Medicine
DX: M25.561 Pain in right knee (principal)
CPT/HCPCS: 73564

== ENCOUNTER → 2025-08-10 | Outpatient (CLI) | payer MEDICARE, SELFPAY ==
--- OUTSIDE RECORDS SUMMARY | 2025-08-10 07:44 | XMS RPT_ITS | CCD ---
Author Organization [facility] Care Team Providers Care Ethnic Studies Professor Name Role Phone Judith Fish Unavailable Roberto Carlos BUITRAGO, Deepak Chandler Primary Care Provider Virgie Crabtree Primary Care Unavailable Neeraj Norwood Referring Unavailable Neeraj Norwood Attending Unavailable Medications Current Medications Medication Drug Class(es) Dates Sig (Normalized) Sig (Original) acetaminophen 300 mg / codeine phosphate 30 mg oral tablet (2 sources) Opioid Agonist Start: 08-18-2018 take 1 tablet by mouth every six hours as needed Acetaminophen-Code ine Active 1 - 2 TABLET PO EVERY 6 HOURS NEEDED August 18, 2018 1:00am 24 hr metoprolol succinate 50 mg extended release oral tablet (5 sources) beta-Adrenergic Cecilia Start: 04-07-2017 METOPROLOL TARTRATE 25 MG TABS METOPROLOL TARTRATE [id number] Judith Fish Start: 04-18-2009 take 1 tablet by marguerite th once daily Metoprolol Succinate (Toprol Xl) 50 MG tablet extended release 24 hr Active 50 MG PO DAILY August 11, 2018 1:00am Comment on above: Take one(1) tablet d aily. simvastatin 40 mg oral tablet (5 sources) HMG-CoA Reductase Inhibitor Start: 04-18-2009 take 40 mg by mouth once daily Simvastatin Active 40 MG PO DAILY August 11, 2018 1:00am Comment on above: Take one(1) tablet d aily at bedtime. Completed/Discontinued Medications Medication Drug Class(es) Dates Sig (Normalized) Sig (Original) acetaminophen 500 mg / HYDROcodone bitartrate 5 mg oral tablet (1 source) Opioid Agonist Start: 03-10-2011 take 1-2 tablets by mouth every six hours as needed acetaminophen-hyd rocodone (VICODIN) 5-500 mg ORAL per tablet Take 1-2 tablets by mouth every 6 hours as needed. FOR PAIN 30 tablet 0 03/10/2011 Active Comment on above: Take 1-2 tablets by mouth every 6 hours as needed. FOR PAIN ascorbic acid 1000 mg oral tablet (1 source) Vitamin C Start: 04-18-2009 ascorbic acid(VITAMIN C 1,000 MG TAB) Indications: Thrombocytopenia, unspecified (HCC) Take one(1) tablet daily. 0 04/18/2009 Active Comment on above: Take one(1) tablet d aily. aspirin 81 mg delayed release oral tablet (1 source) Platelet Aggregation Inhibitor, Nonsteroidal Anti-inflammatory Drug Start: 04-18-2009 aspirin(ECOTRIN LOW STRENGTH 81 MG TAB) Indications: Thrombocytopenia, unspecified (HCC) Take one(1) tablet daily. 0 04/18/2009 Active Comment on above: Take one(1) tablet d aily. fexofenadine hydrochloride 180 mg oral tablet (1 source) Histamine-1 Receptor Antagonist Start: 04-18-2009 fexofenadine hcl(GUSTAVO 180 MG TAB) Indications: Thrombocytopenia, unspecified (HCC) Take one(1) tablet daily. 0 04/18/2009 Active Comment on above: Take one(1) tablet d aily. naproxen sodium 220 mg oral tablet (1 source) Nonsteroidal Anti-inflammatory Drug Start: 04-18-2009 naproxen sodium(ALEVE 220 MG TAB) Indications: Thrombocytopenia, unspecified (HCC) prn 0 04/18/2009 Active Comment on above: prn niacin 500 mg oral tablet (1 source) Nicotinic Acid Start: 04-18-2009 NIACIN 500 MG TAB Indications: Thrombocytopenia, unspecified (HCC) Take one(1) tablet daily. 0 04/18/2009 Active Comment on above: Take one(1) tablet d aily. tadalafil 5 mg oral tablet (1 source) Phosphodiesterase 5 Inhibitor Start: 04-18-2009 tadalafil(CIALIS 5 MG TAB) Indications: Thrombocytopenia, unspecified (HCC) Take one(1) tablet daily. 0 04/18/2009 Active Comment on above: Take one(1) tablet d aily. Problems Active Problems Problem Classification Problem Date Documented Da te Episodic/Chronic Coagulation and hemorrhagic disorders (1 source) Platelet count below reference range; Translations: [Thrombocytopenia, unspecified] Onset: 9 04-18-2009 Chronic Coronary atherosclerosis and other heart disease (1 source) Coronary arteriosclerosis; Translations: [Atherosclerotic heart disease of [place] coronary artery without angina pectoris] Onset: 1 04-21-2022 Chronic Diabetes mellitus without complication (1 source) Type 2 diabetes mellitus; Translations: [Type 2 diabetes mellitus without complications] Onset: 3 04-21-2022 Chronic Disorders of lipid metabolism (2 sources) Pure hypercholesterolemia; Translations: [Pure hypercholesterolemia, unspecified] Onset: 1 04-21-2022 Chronic Esophageal disorders (1 source) Gastroesophageal reflux disease; Translations: [Gastro-esophageal reflux disease without esophagitis] Onset: 7 04-21-2022 Chronic Essential hypertension (1 source) Hypertensive disorder; Translations: [Essential (primary) hypertension] Onset: 1 04-21-2022 Chronic Hyperplasia of prostate (1 source) Benign prostatic hypertrophy with outflow obstruction; Translations: [Benign prostatic hyperplasia with lower urinary tract symptoms] Onset: 6 04-21-2022 Chronic Miscellaneous mental health disorders (1 source) Impotence; Translations: [Male erectile disorder] Onset: 6 04-21-2022 Chronic Osteoarthritis (5 sources) Osteoarthritis of finger joint; Translations: [Arthritis of acromioclavicular joint] Onset: 7 04-07-2017 Chronic Other endocrine disorders (1 source) Testicular hypofunction; Translations: [Testicular hypofunction] Onset: 3 04-21-2022 Chronic Other gastrointestinal disorders (1 source) Irritable bowel syndrome with diarrhea; Translations: [Irritable bowel syndrome with diarrhea] Onset: 1 04-21-2022 Chronic Other male genital disorders (1 source) H/O: male genital disorder; Translations: [Personal history of other diseases of male genital organs] Onset: 2 04-21-2022 Episodic Other non-traumatic joint disorders (1 source) Pain in right knee; Translations: [Pain in right knee] Onset: 5 Episodic Other nutritional; endocrine; and metabolic disorders (1 source) Body mass index 30+ - obesity; Translations: [Body mass index (BMI) 37.0-37.9, adult] Onset: 8 04-21-2022 Chronic Other nutritional; endocrine; and metabolic disorders (1 source) Morbid obesity; Translations: [Morbid (severe) obesity due to excess calories] Onset: 0 04-21-2022 Chronic Residual codes; unclassified (1 source) Obstructive sleep apnea syndrome; Translations: [Obstructive sleep apnea (adult) (pediatric)] Onset: 3 04-21-2022 Chronic Spondylosis; intervertebral disc disorders; other back problems (1 source) Degeneration of lumbar intervertebral disc; Translations: [Other intervertebral disc degeneration, lumbar region] Onset: 9 03-02-2019 Chronic Past or Other Problems Problem Classification Problem Date Documented Da te Episodic/Chronic Abdominal pain (1 source) Abdominal pain; Translations: [Unspecified abdominal pain] Onset: 11-06-2021 04-21-2022 Episodic Other bone disease and musculoskeletal deformities (1 source) Somatic dysfunction of thoracic region; Translations: [Segmental and somatic dysfunction of thoracic region] Onset: 11-06-2021 04-21-2022 Episodic Other connective tissue disease (4 sources) Ganglion cyst; Translations: [Pain in finger] Onset: 04-07-2017 04-07-2017 Episodic Other connective tissue disease (2 sources) Pain in finger; Translations: [Pain in unspecified finger(s)] Onset: 04-07-2017 04-07-2017 Episodic Other non-epithelial cancer of skin (1 source) Squamous cell carcinoma in situ of skin; Translations: [Carcinoma in situ of skin, unspecified] Onset: 11-08-2018 04-21-2022 Episodic Other non-traumatic joint disorders (1 source) Hip pain; Translations: [Pain in left hip] Onset: 03-02-2019 03-02-2019 Episodic Other non-traumatic joint disorders (1 source) Finding of hand region; Translations: [Other specified joint disorders, right hand] Onset: 09-06-2018 04-21-2022 Episodic Other screening for suspected conditions (not mental disorders or infectious disease) (4 sources) Patient encounter status; Translations: [Encounter for screening for cardiovascular disorders] Onset: 08-02-2018 04-21-2022 Episodic Spondylosis; intervertebral disc disorders; other back problems (1 source) Spasm of back muscles; Translations: [Muscle spasm of back] Onset: 05-02-2020 04-21-2022 Episodic Results Test Name Value Interpretation Reference Range Facility Knee 4 or More Viewson 06-29 Knee 4 or More Views [facility] [address] [place] [address] Knee 4 or More Views MR#: [id number] Acct: [id number] Name: AMISH NGUYEN Rep #: [id number] : 1945 M 80 From: Frederick Maldonado MD PCP: Dr. Virgie Crabtree MD Status: REG CLI Study: Knee 4 or More Views Date of Exam: 06/29/25 Exam# [id number] Ordering Dr: Neeraj Norwood MD PROCEDURE: KNEE 4 OR MORE VIEWS 06/29/2025 REASON FOR EXAM: KNEE PAIN TECHNIQUE: Procedure Code: RADKN Modality: DX Procedure: KNEE 4 OR MORE VIEWS Laterality: Right COMPARISON: None FINDINGS: There is no evidence of fracture or dislocation. There is moderate arthritis of the patellofemoral joint. There is severe arthritis of the medial joint space compartment of the knee. There is severe arthritis of the lateral joint space compartment of the knee. There is chondrocalcinosis of the medial and lateral menisci. There is no knee joint effusion. The periarticular soft tissues are normal. RAD/Knee 4 or More Views IMPRESSION: 1. 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 2. Chondrocalcinosis consistent with CPPD. Reading Location: [id number] CC: Dr. Virgie Crabtree MD; Dr. Neeraj Norwood MD Travelift Operator: Signed Normal [facility] Basophil percentageOrdered B y: Virgie Crabtree on 01-26-2024 Chloride [Moles/Vol] 110 mmol/L 98-107 [facility] Cholesterol [Mass/Vol] 117 mg/dL <200 [facility] Comment on above: <200 mg/dL Desirable 200-240 mg/dL Borderline >240 mg/dL High Risk Glucose [Mass/Vol] 123 mg/dL 74-106 [facility] Comment on above: Fasting Glucose resu lt from 100 to 125 mg/dL suggests IMPAIRED HOMEOSTASIS per A.D.A. criteria. Potassium [Moles/Vol] 4.3 mmol/L 3.5-5.1 [facility] Sodium [Moles/Vol] 139 mmol/L 136-145 [facility] Triglyceride [Mass/Vol] 94 mg/dL <199 [facility] Comment on above: The drugs N-Acetylcy steine and Metamizole may falsely depress this assay.Serum Triglycerides Reference Interval Normal <150 mg/dL Borderline high 150 - 199 mg/dL High 200 - 499 mg/dL Very High > or = 500 mg/dL Laboratory - Chemistry and C hemistry - challengeOrdered By: Virgie Crabtree on 01-26-2024 ALT [Catalytic activity/Vol] 51 U/L 16-61 [facility] Cholesterol in HDL [Mass/Vol] 52 mg/dL >40 [facility] Comment on above: The drugs N-Acetylcy steine and Metamizole may falsely depress this assay. Reference Range HDL <40 mg/dL Low HDL Cholesterol HDL >or= 60 mg/dL High HDL Cholesterol Cholesterol in LDL [Mass/Vol] 46 mg/dL 0-130 [facility] CO2 [Moles/Vol] 26.0 mmol/L 21.0-32.0 [facility] Urea nitrogen/Creatinine [Mass ratio] 14.0 mg/mg 10-20 [facility] No Panel InformationOrdered By: Virgie Crabtree on 01-26-2024 Estimated GFR (MDRD) Amer 123 mL/min >60 [facility] Comment on above: GFR Calc Estimated GFR (MDRD) Non-Af Amer 101 mL/min >60 [facility] Comment on above: Non- GFR Calc VLDL Cholesterol 19 mg/dL 5-40 [facility] Serum or plasma calcium lindsay urement (mass/volume)Ordered By: Virgie Crabtree on 01-26-2024 Calcium [Mass/Vol] 9.1 mg/dL 8.5-10.1 [facility] Serum or plasma creatinine m easurement (mass/volume)Ordered By: Virgie Crabtree on 01-26-2024 Creatinine [Mass/Vol] 0.79 mg/dL 0.70-1.30 [facility] Comment on above: The validity of the calculated GFR & GFRAA in patients over 70 years has not been determined. Clinical correlation is essential. Serum or plasma urea nitroge n measurement (mass/volume)Ordered By: Virgie Crabtree on 01-26-2024 Urea nitrogen [Mass/Vol] 11 mg/dL 7-18 [facility] Thin prep Papanicolaou smear with manual screeningOrdered By: Virgie Crabtree on 01-26-2024 Protein (U) [Mass/Vol] 10.2 mg/dL 0.0-11.8 [facility] Thin prep Papanicolaou smear with manual screening 49 U/L 15-37 [facility] Thin prep Papanicolaou smear with manual screening 3 5-15 [facility] Urine creatinine measurement (mass/volume)Ordered By: Virgie Crabtree on 01-26-2024 Creatinine (U) [Mass/Vol] 105.00 mg/dL NO RANGE EST. [facility] Urine protein/creatinine mas s ratioOrdered By: Virgie Crabtree on 01-26-2024 Protein/Creatinine (U) [Mass ratio] 97 mg/g CRE 0-200 [facility] Basophil percentageOrdered B y: Dr. Crabtree on 01-26-2023 Chloride [Moles/Vol] 107 mmol/L 98-107 [facility] Cholesterol [Mass/Vol] 143 mg/dL <200 [facility] Comment on above: <200 mg/dL Desirable 200-240 mg/dL Borderline >240 mg/dL High Risk Glucose [Mass/Vol] 108 mg/dL 74-106 [facility] Comment on above: Fasting Glucose resu lt from 100 to 125 mg/dL suggests IMPAIRED HOMEOSTASIS per A.D.A. criteria. Potassium [Moles/Vol] 4.4 mmol/L 3.5-5.1 [facility] Sodium [Moles/Vol] 140 mmol/L 136-145 [facility] Triglyceride [Mass/Vol] 125 mg/dL <199 [facility] Comment on above: The drugs N-Acetylcy steine and Metamizole may falsely depress this assay.Serum Triglycerides Reference Interval Normal <150 mg/dL Borderline high 150 - 199 mg/dL High 200 - 499 mg/dL Very High > or = 500 mg/dL Laboratory - Chemistry and C hemistry - challengeOrdered By: Dr. Crabtree on 01-26-2023 ALT [Catalytic activity/Vol] 48 U/L 16-61 [facility] CO2 [Moles/Vol] 28.0 mmol/L 21.0-32.0 [facility] Urea nitrogen/Creatinine [Mass ratio] 17.2 mg/mg 10-20 [facility] No Panel InformationOrdered By: Dr. Crabtree on 01-26-2023 Urine Microalbumin/Creatini ne Ratio 6.1 mg/g CRE <30 [facility] Estimated GFR (MDRD) Amer 156 mL/min >60 [facility] Comment on above: GFR Calc Estimated GFR (MDRD) Non-Af Amer 129 mL/min >60 [facility] Comment on above: Non- GFR Calc Serum or plasma calcium lindsay urement (mass/volume)Ordered By: Dr. Crabtree on 01-26-2023 Calcium [Mass/Vol] 9.1 mg/dL 8.5-10.1 [facility] Serum or plasma cholesterol in HDL measurement (mass/volume)Ordered By: Dr. Crabtree on 01-26-2023 Cholesterol in HDL [Mass/Vol] 47 mg/dL >40 [facility] Comment on above: The drugs N-Acetylcy steine and Metamizole may falsely depress this assay. Reference Range HDL <40 mg/dL Low HDL Cholesterol HDL >or= 60 mg/dL High HDL Cholesterol Serum or plasma cholesterol in VLDL measurement (mass/volume)Ordered By: Dr. Crabtree on 01-26-2023 Cholesterol in VLDL [Mass/Vol] 25 mg/dL 5-40 [facility] Serum or plasma creatinine m easurement (mass/volume)Ordered By: Dr. Crabtree on 01-26-2023 Creatinine [Mass/Vol] 0.64 mg/dL 0.70-1.30 [facility] Comment on above: The validity of the calculated GFR & GFRAA in patients over 70 years has not been determined. Clinical correlation is essential. Serum or plasma low density lipoprotein (LDL) cholesterol measurement (mass/volume)Ordered By: Dr. Crabtree on 01-26-2023 Cholesterol in LDL [Mass/Vol] 71 mg/dL 0-130 [facility] Serum or plasma urea nitroge n measurement (mass/volume)Ordered By: Dr. Crabtree on 01-26-2023 Urea nitrogen [Mass/Vol] 11 mg/dL 7-18 [facility] Thin prep Papanicolaou smear with manual screeningOrdered By: Dr. Crabtree on 01-26-2023 Thin prep Papanicolaou smear with manual screening 6.6 mg/L NO RANGE EST. [facility] Thin prep Papanicolaou smear with manual screening 40 U/L 15-37 [facility] Thin prep Papanicolaou smear with manual screening 5 5-15 [facility] Urine creatinine measurement (mass/volume)Ordered By: Dr. Crabtree on 01-26-2023 Creatinine (U) [Mass/Vol] 107.00 mg/dL NO RANGE EST. [facility] Whole blood hemoglobin A1c/t otal hemoglobin ratio (mass fraction)Ordered By: Dr. Crabtree on 01-26-2023 HbA1c (Bld) [Mass fraction] 4.7 % 3.8-5.6 [facility] Comment on above: Normal < 5.7 % Predi abetic 5.7 - 6.4 % Diabetic >or= 6.5 % Please note range changes. Office Visiton 04-07-2017 Documentation of current medications (procedure) Done Invalid Interpretation Code [facility] Work Phone: Protein mass conc Done [facility] Work Phone: Tobacco smoking status NHIS Never smoker [facility] Work Phone: Tobacco use [facility] Never smoker Invalid Interpretation Code [facility] Work Phone: Vital Signs Date Time Vital Sign Value Performing Clinician Dennisi cara 04-07-2017 10:54-0400 BMI (Body Mass Index) 40.45 kg/m2 [facility] Work Phone: 04-07-2017 10:54-0400 Height 173.99 cm Judith [facility] Work Phone: 04-07-2017 10:54-0400 Weight 122.47 kg Judith [facility] Work Phone: Encounters Encounter Date Encounter Type Care Provider Facility Start: 06-29-2025 End: 06-29-2025 ambulatory Virgie Crabtree Facility:[facility] Start: 01-26-2024 End: 01-26-2024 ambulatory [facility] Work Phone: Start: 01-26-2024 End: 01-26-2024 Patient encounter procedure [facility] Start: 01-26-2023 End: 01-26-2023 ambulatory [facility] Work Phone: Start: 01-26-2023 End: 01-26-2023 Patient encounter procedure [facility] Start: 04-21-2022 Chart abstracting Dave De La Torre DO Work Phone: [facility] Start: 04-21-2022 Medical examinations/reports status Dave De La Torre DO Work Phone: [facility] Start: 04-21-2022 Patient encounter status Dave De La Torre DO Work Phone: [facility] Procedures Date Procedure Procedure Detail Performing Clinician Start: 04-07-2017 End: 04-07-2017 Drain/inject, joint/bursa Judith Fish Work Phone: Start: 12-29-2012 History of coronary artery bypass grafting History of coronary artery bypass surgery Dave De La Torre DO Work Phone: Plan of Treatment Date Care Activity Detail Author Start: 03-27-2024 Urine microalbumin profile DTAP,TDAP,TD (2 - Td or Tdap) [facility] Start: 11-11-2022 Hepatitis B surface antibody level LDL CHOLESTEROL [facility] Start: 05-22-2022 Influenza vaccination INFLUENZA (#1) [facility] Start: 05-11-2022 Hemoglobin A1c/Hemoglobin.total in Blood HBA1C [facility] Start: 09-21-2021 ADVANCE DIRECTIVE DISCUSSION ADVANCE DIRECTIVE DISCUSSION [facility] Start: 04-07-2017 End: 04-07-2017 Appointment Appointment [facility] Work Phone: Start: 04-07-2017 End: 04-07-2017 X-ray exam of finger(s) X-Ray, Fingers [facility] Work Phone: Start: 1991 COLOGUARD (FIT-DNA) COLOGUARD (FIT-DNA) [facility] Start: 1991 Colonoscopy COLONOSCOPY [facility] Start: 1991 COLORECTAL CANCER SCREENING COLORECTAL CANCER SCREENING [facility] Start: [address] COLONOGRAPHY [facility] Start: 1991 FECAL OCCULT BLOOD FECAL OCCULT BLOOD [facility] Start: 1991 SIGMOIDOSCOPY SIGMOIDOSCOPY [facility] Start: 1964 ANNUAL PCP TEAM CHRONIC DISEASE VISIT ANNUAL PCP TEAM CHRONIC DISEASE VISIT [facility] Start: 1964 BP CONTROLLED (<130/80) BP CONTROLLED (<130/80) [facility] Start: 1958 Adult depression screening assessment DEPRESSION SCREENING [facility] Start: 1956 3 comp foot exam completed DIABETIC FOOT EXAM [facility] Start: 1956 Hepatitis B screening URINE ALBUMIN:CREATININE RATIO [facility] Start: 1956 Hepatitis C antibody, confirmatory test DILATED RETINAL EXAM [facility] Start: 1945 COVID-19 VACCINE (#1) COVID-19 VACCINE (#1) [facility] Immunizations Immunization Date Immunization Notes Care Provider Lise maldonado 05-02-2020 pneumococcal conjuga te vaccine, 13 valent Christopher Stetler DO Work Phone: [facility] 01-22-2019 zoster vaccine recombinant Christopher Stetler DO Work Phone: [facility] 01-19-2019 zoster vaccine recombinant Christopher Stetler DO Work Phone: [facility] 01-10-2019 adenovirus vaccine, unspecified formulation Christopher Stetler DO Work Phone: [facility] 11-22-2018 zoster vaccine, unspecified formulation Christopher Stetler DO Work Phone: [facility] 11-19-2018 zoster vaccine recombinant Dave Aminr DO Work Phone: [facility] 10-22-2018 zoster vaccine, live Sean gilda Aminr DO Work Phone: [facility] 07-26-2018 zoster vaccine recombinant Dave Aminr DO Work Phone: [facility] 03-27-2014 pneumococcal polysaccharide vaccine, 23 valent Dave Aminr DO Work Phone: [facility] 03-27-2014 tetanus toxoid, redu yosvany diphtheria toxoid, and acellular pertussis vaccine, adsorbed Dave Aminr DO Work Phone: [facility] Payers Date Payer Category Payer Private Health Insurance [facility] [id number] 2025 Self-pay [id number] 2021 Medicare [employer]ETNA MEDICARE A ETNA MEDICARE PPO [id number] 2021-Present [phone] [address] [place] [address] PPO [id number] 2011 Medicare MEDICARE PART A B [id number] Private Health Insurance [employer] OTHER MEB VTSSB [id number] Unknown AARP [id number] Unknown COMMERCIAL OTHER [id number] Unknown [id number] Social History Date Type Detail Facility Tobacco smoking stat [email or web address]IS Never smoked tobacco [facility] Start: 04-21-2022 [facility] Start: 1945 Sex Assigned At Not on file [facility] Start: 10-04-2018 Tobacco smoking stat [facility] Unknown if ever smoked [facility] Start: 1945 Sex Assigned At Male [facility] Evaluation note Note Date & Type Note Facility Evaluation note No assessment information availa ble [facility] Work Phone: Advance Directives No Advanced Directives Records Found Advance Directive Response Recorded Date/ Time Living Will Yes August 11, 018 2:51pm Power of Rag Grader Yes August 11, 2018 2:51pm Summary Purpose Family History No Family History Records Found Additional Source Comments Source Comments (unrecognize d section and content) In the event this informatio n is protected by the Federal Confidentiality of Alcohol and Drug Abuse Patient Records regulations: The Federal rules restrict any use of the information to criminally investigate or prosecute any alcohol or drug abuse patient.[facility] Care Teams (unrecognized sec tion and content) Ethnic Studies Professor Relationship Specialty Start Date End Date Deepak Azevedo MD PCP - General 04/13/09 Team Status: Active Member Role Status Dates Dr. Edward Bullard MD Family Provider Active Dr. Virgie Crabtree MD Primary Care Provider Active Team Status: Inactive Member Role Status Dates Dr. Virgie Crabtree MD Primary Care Provider, [facility] Provider Active Goals (unrecognized section and content) Goals may be documented in a n alternate sectionGoals may be documented in an alternate section (unrecognized sect ion and content) No Status Records Found INFORMATION SOURCE (unrecogn ized section and content) DATE CREATED AUTHOR 07/20/2025 [facility] FOR RECORDS PERTAINING TO PATIENTS WHO ARE OR HAVE BEEN ENROLLED IN A CHEMICAL DEPENDENCY/SUBSTANCEABUSE PROGRAM, SOME INFORMATION MAY BE OMITTED. This clinical summary was aggregated from multiple sources. Caution should be exercised in using it in the provision of clinical care. This summary normalizes information from multiple sources, and as a consequence, information in this document may materially change the coding, format and clinical context of patient data. In addition, data may be omitted in some cases. CLINICAL DECISIONS SHOULD BE BASED ON THE PRIMARY CLINICAL RECORDS. [facility] [employer] provides no warranty or guarantee of the accuracy or completeness of information in this document.
[2025-08-10 10:20] LABS: Hematocrit 38.5 % (40-54); Hemoglobin 13.4 g/dL (13.0-16.5); Immature Granulocytes Count 0.010 X10^3/uL (0.0-0.0); Mean Corp Hgb Conc 34.8 g/dL (32-36); Mean Corpuscular Volume 104.1 fL (80-94); Mean Platelet Vol. 9.7 fl (6.2-12.0); NRBC Flagged by Analyzer 0 % (0-5); Platelet Count 103 K/mm3 (150-450); RBC Distribution Width CV 14.3 % (11.6-14.6); RBC Distribution Width SD 54.2 fl (35.1-43.9); Red Blood Count 3.70 M/mm3 (4.6-6.2); White Blood Count 5.1 K/mm3 (4.4-11.0)
[2025-08-10 11:21] LABS: AST(SGOT) 44 U/L (<=37); Alanine Aminotransfer ALT/SGPT 41 U/L (<=46); Albumin, Serum 4.0 g/dL (3.4-4.8); Alkaline Phosphatase 92 U/L (40-129); Anion Gap 9 (5-15); BUN 11 mg/dL (4-19); BUN/Creat Ratio 13.3 RATIO (10-20); Calcium,Total 9.0 mg/dL (7.6-11.0); Carbon Dioxide 25.4 mmol/L (21.0-32.0); Chloride 108 mmol/L (98-108); Cholesterol 128 mg/dL (<=200); Globulin 2.1 g/dL (2.2-4.2); Glucose 94 mg/dL (70-99); Low Density Lipoprotein Calc. 55 mg/dL; PSA,Total - Annual Screen 0.53 ng/mL (0.02-4.00); Potassium 4.2 mmol/L (3.3-5.1); Triglycerides 152 mg/dL; Very Low Density Lipoprotein 30 mg/dL (5-40); cholesterol:hdl ratio screen 2.75
== END | disposition home or self-care (01) ==
LOC: MTLAB 07:40
PROVIDERS: PCP Family Medicine; Referring Provider Family Medicine; Visit Provider Family Medicine
DX: Z12.5 Encounter for screening for malignant neoplasm of prostate (principal); E78.00 Pure hypercholesterolemia, unspecified; I10 Essential (primary) hypertension
CPT/HCPCS: 36415; 80053; 80061; 84153; 85025; G0103